=== PATIENT | female | born 1950 | race Caucasian/White ===

== ENCOUNTER → 2017-06-22 | Outpatient (CLI) | payer MEDICARE, MEDICAID ==
[~2017-06-22] MED LIST: ASPIRIN 325MG325 MG PO; ATENOLOL100 MG PO; EXCEDRIN TENSIO1 CAP PO; KEFLEX 500MG.500 MG PO; LEVOTHYROXIN0.125 M1 PO; LISINOPRIL20 MG PO; MELOXICAM15 MG PO; METFORMIN ER500 M1 PO; VENLAFAXINE 337.5 MG PO; VYTORIN 10 MG-41 TAB PO
--- NOTE | 2017-06-22 14:00 | CARDIOVASCULAR REPORT ---
"Cerebrovascular Exam Indications: 435.9 Unspecified transient cerebral ischemia. IMPRESSIONS 1. The bilateral vertebral arteries are patent with normal antegrade flow. 2. Study suggests less than 20% stenosis involving the right internal carotid artery and the left internal carotid artery. No change from the study of 06-Jan-2011. 3. Tortuous carotid arteries seen bilaterally. History: Transient ischemic attack. Risk factors: Hypertension. Hyperlipidemia. Carotid duplex study. Complete study and Doppler flow study including spectral analysis, color and serrano scale imaging. Height: Height: 154.9cm. Height: 61in. Weight: Weight: 75.8kg. Weight: 166.7lb. Body mass index: BMI: 31.6kg/m^2. Body surface area: BSA: 1.84m^2. Location: Vascular laboratory. Patient status: Outpatient. Tables: Arterial flow: + +--------+--------+ |Location |V sys |V ed | + +--------+--------+ |Right CCA - proximal|51.9cm/s|12.6cm/s| + +--------+--------+ |Right CCA - distal |63.6cm/s|21.2cm/s| + +--------+--------+ |Right ECA |81.7cm/s|--------| + +--------+--------+ |Right ICA - proximal|67.6cm/s|23.6cm/s| + +--------+--------+ |Right ICA - mid |65.2cm/s|21.2cm/s| + +--------+--------+ |Right ICA - distal |108cm/s |33.8cm/s| + +--------+--------+ |Right vertebral |38.5cm/s|--------| + +--------+--------+ |Left CCA - proximal |94.3cm/s|15.7cm/s| + +--------+--------+ |Left CCA - distal |55cm/s |19.6cm/s| + +--------+--------+ |Left ECA |60.5cm/s|--------| + +--------+--------+ |Left ICA - proximal |73.1cm/s|20.4cm/s| + +--------+--------+ |Left ICA - mid |59.7cm/s|18.9cm/s| + +--------+--------+ |Left ICA - distal |47.9cm/s|18.1cm/s| + +--------+--------+ |Left vertebral |44cm/s |--------| + +--------+--------+ Velocity ratios: + + + + + + | |Right, V sys|Right, V ed|Left, V sys|Left, V ed| + + + + + + |Max ICA/dist CCA|1.7 |1.59 |1.33 |1.04 | + + + + + + (Report amended ) Electronically signed by: Norberto Gallo [id number]"
== END ==
LOC: RT 13:28
DX: G45.8 Other transient cerebral ischemic attacks and related syndromes (principal)